=== PATIENT | female | born 1960 | race African-American/Black ===

== ENCOUNTER → 2022-05-10 | Day surgery (SDC) | payer MEDICAID ==
[~2022-05-10] VITALS: Ht 167.6 cm; Wt 93.0 kg
[~2022-05-10] MED LIST: ASCO100T12 PO; CEFAZOLIN SODIUM 1000MG/VIAL ONE; DEXAMETHASONE 4MG/ML 1ML VIAL ONE; DOCU-286 PO; FENTANYL CITRATE/PF 50MCG/ML 2ML VIAL ONE; GARL200T PO; GLYCOPYRROLATE 0.2 MG/ML 2ML VIAL ONE; HYDROCODONE/ACETAMINOPHEN 5/325MG TABLET PO PRN; HYDROMORPHONE HCL/PF 2MG/ML CPJ ONE; LACTATED RINGERS 1,000 ML IV SCH; MIDAZOLAM HCL 2 MG/2 ML VIAL ONE; NEOSTIGMINE METHYLSULFATE 1MG/ML 10 ML VIAL ONE; OMEP20TA23 PO; ONDANSETRON HCL 4MG/2ML INJ ONE; PROPOFOL 200MG/20ML VIAL IV ONE; ROCURONIUM BROMIDE 10MG/ML VIAL 5ML IV ONE; SKIN ADHESIVE 0.7 GM EA TOP ONE; SUCCINYLCHOLINE CHLORIDE 200MG/10ML IV ONE; TURM500T PO; VITA1TAB20 PO; ZINC100T8 PO
[2022-05-10 14:57] VITALS: BP 129/74
== END | disposition home or self-care (01) ==
LOC: OR 07:35
PROVIDERS: ATTEND Surgery
DX: K43.9 Ventral hernia without obstruction or gangrene (principal); N18.6 End stage renal disease; M19.90 Unspecified osteoarthritis, unspecified site; K21.9 Gastro-esophageal reflux disease without esophagitis; Z79.899 Other long term (current) drug therapy; Z98.890 Other specified postprocedural states; Z20.822 Contact with and (suspected) exposure to COVID-19
CPT/HCPCS: 49560; 49568; 87426; 88302; C1781; C9803; J0330; J0690; J1100; J1170; J2250; J2405; J2704; J2710; J3010; J3490